=== PATIENT | male | born 1985 | race Caucasian/White ===

== ENCOUNTER 2018-09-17 02:39 | Emergency (ER) | payer OTHER ==
[2018-09-17] MEDS ORDERED: HYDROCODONE/ACETAMINOPHEN 5-325 MG TABLET PO ONE (03:00)
[2018-09-17] MEDS ORDERED: IPRATROPIUM/ALBUTEROL 0.5-2.5 MG/3 ML AMPUL NEB ONE (03:00)
[2018-09-17] MEDS ORDERED: KETOROLAC TROMETHAMINE 60 MG/2 ML SDV IM ONE (03:00)
--- NOTE | 2018-09-17 03:05 | ER Document Report ---
ED Flu Like - General Mode of Arrival: Ambulatory Information source: Patient TRAVEL OUTSIDE OF THE [place] IN LAST 30 DAYS: No <RANULFO REGALADO - Last Filed: 09/17/18 03:00> <SHAUN SUAREZ - Last Filed: 09/17/18 04:10> - General Chief Complaint: Flu Symptoms Stated Complaint: FEVER Time Seen by Provider: 09/17/18 02:54 Notes: 33-year-old male who presents to the emergency department today with complaints of flu-like symptoms including generalized body aches, fevers, nausea, nasal congestion, sore throat, and a cough. Patient states his fevers have been as high as 104.8 F at home. Patient states he has had the above-mentioned symptoms for a few days. Patient states he is bringing up dark brown sputum with this cough. (RANULFO REGALADO) - Related Data Allergies/Adverse Reactions: No Known Allergies Allergy (Unverified 09/17/18 02:42) Past Medical History - General Information source: Patient - Social History Smoking Status: Never Smoker Cigarette use (# per day): No Frequency of alcohol use: None Drug Abuse: None Occupation: [employer] [facility] [place] Lives with: Family Family History: Reviewed & Not Pertinent Past Surgical History: Reports: Other - 3rd molar removal <RANULFO REGALADO - Last Filed: 09/17/18 03:00> Review of Systems - Review of Systems Constitutional: See HPI, Fever EENT: No symptoms reported Cardiovascular: No symptoms reported Respiratory: See HPI, Cough, Short of breath, Sputum, Wheezing Gastrointestinal: No symptoms reported Genitourinary: No symptoms reported Male Genitourinary: No symptoms reported Musculoskeletal: See HPI, Muscle pain - Generalized myalgias Skin: No symptoms reported Hematologic/Lymphatic: No symptoms reported Neurological/Psychological: No symptoms reported -: Yes All other systems reviewed and negative <RANULFO REGALADO - Last Filed: 09/17/18 03:00> Physical Exam <RANULFO REGALADO - Last Filed: 09/17/18 03:00> <SHAUN SUAREZ - Last Filed: 09/17/18 04:10> - Vital signs Vitals: Temp Pulse Resp BP Pulse Ox 99.6 F 97 18 134/68 H 98 09/17/18 02:44 09/17/18 02:44 09/17/18 02:44 09/17/18 02:44 09/17/18 02:44 - Notes Notes: Physical Exam: General: Alert, appears uncomfortable. Coughed up mullins/brown sputum during exam. HEENT: Normocephalic. Atraumatic. PERRL. Extraocular movements intact. Oropharynx clear. Nasal congestion. Frontal and maxillary sinus tenderness with percussion. TMs are clear bilaterally. Posterior oropharynx erythema without tonsillar hypertrophy or exudate. Neck: Supple. Non-tender. Respiratory: No respiratory distress. Wheezing and rhonchi throughout bilaterally. Cardiovascular: Regular rate and rhythm. Abdominal: Normal Inspection. Non-tender. No distension. Normal Bowel Sounds. Back: Non-tender. No deformity or step off. Extremities: Moves all four extremities. Upper extremities: Normal inspection. Normal ROM. Lower extremities: Normal inspection. No edema. Normal ROM. Neurological: Normal cognition. AAOx4. Normal speech. Psychological: Normal affect. Normal Mood. Skin: Warm. Dry. Normal color. (RANULFO REGALADO) Course <RANULFO REGALADO - Last Filed: 09/17/18 03:00> - Diagnostic Test Radiology reviewed: Image reviewed, Reports reviewed - Chest x-ray does not show an acute process. <SHAUN SUAREZ - Last Filed: 09/17/18 04:10> - Re-evaluation Re-evalutation: 09/17/18 04:05 Patient reports that he feels much better, wheezes and rhonchi have improved quite a bit after the breathing treatment. (SHAUN SUAREZ) - Vital Signs Vital signs: Temp Pulse Resp BP Pulse Ox 99.6 F 97 18 134/68 H 98 09/17/18 02:44 09/17/18 02:44 09/17/18 02:44 09/17/18 02:44 09/17/18 02:44 Discharge <RANULFO REGALADO - Last Filed: 09/17/18 03:00> <SHAUN SUAREZ - Last Filed: 09/17/18 04:10> - Discharge Clinical Impression: Acute bronchitis with bronchospasm Sinusitis Qualifiers: Sinusitis location: unspecified location Chronicity: acute Recurrence: non- recurrent Qualified Code(s): J01.90 - Acute sinusitis, unspecified Fever Qualifiers: Fever type: unspecified Qualified Code(s): R50.9 - Fever, unspecified Condition: Stable Disposition: HOME, SELF-CARE Additional Instructions: Bronchitis with Bronchospasm (Wheezing): You have bronchitis with bronchospasm (wheezing). Sometimes people develop wheezing with a chest cold. This occurs either because of an underlying tendency toward asthma or because the virus itself irritates the bronchial tubes. This irritation causes cough, shortness of breath, and wheezing. Emergency treatment of bronchospasm may include adrenaline shots or bronchodilator aerosol. You may feel lightheaded and have a rapid pulse for an hour or two. Rest and get plenty of fluids. At home, we'll treat you with a bronchodilator inhaler. Corticosteroids may be required for some patients. Until you recover, avoid chemical fumes, dusts, pollens, and exercising in very cold or dry air. If you smoke, stop now! Most cases of bronchitis get better without antibiotics. We prescribe antibiotics when we believe bacteria are damaging your airways, or if there's high risk the bronchitis will worsen into pneumonia. Increase your fluid intake. A cool mist humidifier may make your lungs more comfortable. An expectorant (cough medicine that loosens phlegm) can help. Repeated episodes of bronchitis and bronchospasm may result in lung damage -- for example, chronic bronchitis, recurrent pneumonias, or emphysema. If you develop a fever, increased wheezing, chest pain, or severe shortness of breath, you should contact the doctor immediately. Use the inhaler 2 puffs every 4 hours for wheezing as needed. Take Tylenol every 4 hours for fever as needed. Take Ibuprofen 800 mg every 8 hours for generalized aches and pains. Try Robitussin-DM to help suppress your cough. Drink plenty of fluids. Get plenty of rest. Start the azithromycin as prescribed on Thursday morning. Follow-up with your primary care provider if not improving. RETURN TO THE EMERGENCY ROOM IF ANY NEW OR WORSENING SYMPTOMS. Prescriptions: Azithromycin [Zithromax 250 mg Tablet] 250 mg PO DAILY #4 tablet Forms: Return to Work Scribe Attestation: 09/17/18 03:16 I personally performed the services described in the documentation, reviewed and edited the documentation which was dictated to the scribe in my presence, and it accurately records my words and actions. (SHAUN SUAREZ) Scribe Documentation - Scribe Written by Scribe:: Laura Brennan, 09/17/2018 0314 acting as scribe for :: Jose <RANULFO REGALADO - Last Filed: 09/17/18 03:00>
--- NOTE | 2018-09-17 03:53 | RADIOLOGY REPORT (SQ) ---
Chest 2 view on 09/17/2018 at 3:34 AM CLINICAL INDICATION: Fever, productive cough COMPARISON: None FINDINGS: The lungs are clear. Cardiac, hilar and mediastinal contours are within normal limits. Pulmonary vascularity is within normal limits. No bony abnormality is noted. IMPRESSION: No active disease.
[2018-09-17] MEDS ORDERED: AZITHROMYCIN 250 MG TABLET PO ONE (04:03)
[2018-09-17] MEDS ORDERED: ALBUTEROL SULFATE HFA (90 MCG/PUFF) 8 GM MDI (1 MDI/ER DISP) IH ONE (04:03)
[2018-09-17 04:20] VITALS: BP 111/55
== END 2018-09-17 04:20 | disposition home or self-care (01) ==
LOC: ER 02:39
DX: J01.90 Acute sinusitis, unspecified (principal); J20.9 Acute bronchitis, unspecified; R50.9 Fever, unspecified; R11.0 Nausea; R09.81 Nasal congestion; J02.9 Acute pharyngitis, unspecified; R05 Cough; R06.02 Shortness of breath; R06.2 Wheezing; M79.10 Myalgia, unspecified site
CPT/HCPCS: 94640; 99283; 96372; 87070; 87205; 71046; J1885; J3490; J7620